=== PATIENT | male | born 1980 | race Two or more races ===

== ENCOUNTER 2019-09-12 14:50 | Emergency (ER) | payer SELFPAY ==
[2019-09-12 15:09] VITALS: BP 124/82; PULSE 91
--- NOTE | 2019-09-12 15:43 | EDM.PDOC ---
<Josie Henry - Last Filed: 09/12/19 15:34> ED HPI GENERAL MEDICAL PROBLEM - General Chief Complaint: Diabetic Complaint Stated Complaint: HIGH BLOOD SUGAR Time Seen by Provider: 09/12/19 15:08 Source of Information: Reports: Patient History Limitations: Reports: No Limitations - History of Present Illness INITIAL COMMENTS - FREE TEXT/NARRATIVE: 38 year old male with complaints of high blood sugars. Pt was diagnosed with type 2 diabetes 4 years ago and recently started on insulin in March. He reports that his blood sugars have been well controlled until about the beginning of August when his blood sugars have been high. He has been working with the nursing educator at [facility] regarding this. He states that 3 weeks ago, his insulin dose was increased and he was started on a sliding scale with Humalog. Last night his blood sugar was 498 and so they contacted the nursing educator and she told them to give 14 units of sliding scale. With in a couple of hours, his blood sugar had decreased to 160 and the patient stated that he did not feel well. Of note, the patient had ice cream last evening. The patient's fasting blood sugar was 266 this am, so they consulted the nursing educator again and she told them to give 10 units of sliding scale and go to the walk in clinic. Once the patient got to the walk in clinic, they sent him to the ED. Patient and his both report that they initially started on a healthy diet with more vegetables, but that they have let this go by the wayside because the nursing educator told them that the patient could eat whatever he wants and just to cover it with insulin. - Related Data Allergies Allergy/AdvReac Type Severity Reaction Status Date / Time No Known Allergies Allergy Verified 09/12/19 15:09 Home Meds: Home Meds Insulin Glargine,Hum.Rec.Anlog [Michael Naylorostkelly] 30 unit SQ DAILY 09/12/19 [ History] Insulin Lispro [Humalog Kwikpen U-100] 10 unit SQ ASDIRECTED 09/12/19 [History] metFORMIN [Glucophage] 850 mg PO BIDMEALS 09/12/19 [History] Past Medical History HEENT History: Reports: None Cardiovascular History: Reports: None Respiratory History: Reports: None Gastrointestinal History: Reports: None Genitourinary History: Reports: None Musculoskeletal History: Reports: None Neurological History: Reports: None Psychiatric History: Reports: None Endocrine/Metabolic History: Reports: Diabetes, Type I Hematologic History: Reports: None Immunologic History: Reports: None Oncologic (Cancer) History: Reports: None Dermatologic History: Reports: None - Infectious Disease History Infectious Disease History: Reports: None Social & Family History - Tobacco Use Smoking Status *Q: Never Smoker - Caffeine Use Caffeine Use: Reports: Tea - Recreational Drug Use Recreational Drug Use: No ED ROS GENERAL - Review of Systems Review Of Systems: See Below Constitutional: Reports: Fatigue. Denies: Fever, Chills, Night Sweats, Diaphoresis HEENT: Reports: No Symptoms Respiratory: Reports: No Symptoms. Denies: Shortness of Breath Endocrine: Reports: Fatigue, High Glucose. Denies: Low Glucose, Polydypsia, Polyuria GI/Abdominal: Reports: No Symptoms. Denies: Abdominal Pain, Nausea, Vomiting : Reports: No Symptoms. Denies: Dysuria, Frequency, Urgency Musculoskeletal: Reports: Joint Pain (generalized body aches), Muscle Pain Skin: Reports: No Symptoms. Denies: Diaphoresis Neurological: Reports: No Symptoms. Denies: Headache Psychiatric: Reports: No Symptoms Hematologic/Lymphatic: Reports: No Symptoms Immunologic: Reports: No Symptoms ED EXAM GENERAL NO PERIP PULSE - Physical Exam Exam: See Below Exam Limited By: No Limitations General Appearance: Alert, WD/WN, No Apparent Distress Eye Exam: Bilateral Eye: PERRL Ears: Normal External Exam, Hearing Grossly Normal Nose: Normal Inspection Throat/Mouth: Normal Inspection, Normal Lips, Normal Voice, No Airway Compromise Head: Atraumatic, Normocephalic Neck: Normal Inspection, Supple, Non-Tender, Full Range of Motion Respiratory/Chest: No Respiratory Distress, Lungs Clear, Normal Breath Sounds, Chest Non-Tender Cardiovascular: Normal Peripheral Pulses, Regular Rate, Rhythm, No Edema, No Murmur GI/Abdominal: Normal Bowel Sounds, Soft, Non-Tender, No Distention (Male) Exam: Deferred Rectal (Males) Exam: Deferred Back Exam: Normal Inspection, Full Range of Motion Extremities: Normal Inspection, Normal Range of Motion, No Pedal Edema Neurological: Alert, Oriented, Normal Cognition, No Motor/Sensory Deficits Psychiatric: Normal Affect, Normal Mood Skin Exam: Warm, Dry, Intact, Normal Color, No Rash Lymphatic: No Adenopathy Course - Vital Signs Last Recorded V/S: Last Vital Signs Temp 98.2 F 09/12/19 15:05 Pulse 91 09/12/19 15:05 Resp 16 09/12/19 15:05 BP 124/82 09/12/19 15:05 Pulse Ox 97 09/12/19 15:05 - Orders/Labs/Meds Labs: Laboratory Tests 09/12/19 09/12/19 09/12/19 Range/Units 15:23 15:50 15:50 WBC 8.62 (4.23-9.07) K/mm3 RBC 5.06 (4.63-6.08) M/mm3 Hgb 15.4 (13.7-17.5) gm/dl Hct 42.2 (40.1-51.0) % MCV 83.4 (79.0-92.2) fl MCH 30.4 (25.7-32.2) pg MCHC 36.5 H (32.2-35.5) g/dl RDW Std Deviation 37.5 (35.1-43.9) fL Plt Count 252 (163-337) K/mm3 MPV 9.5 (9.4-12.3) fl Neut % (Auto) 62.4 (34.0-67.9) % Lymph % (Auto) 27.7 (21.8-53.1) % Lares % (Auto) 7.3 (5.3-12.2) % Eos % (Auto) 2.4 (0.8-7.0) Baso % (Auto) 0.2 (0.1-1.2) % Neut # (Auto) 5.37 (1.78-5.38) K/mm3 Lymph # (Auto) 2.39 (1.32-3.57) K/mm3 Lares # (Auto) 0.63 (0.30-0.82) K/mm3 Eos # (Auto) 0.21 (0.04-0.54) K/mm3 Baso # (Auto) 0.02 (0.01-0.08) K/mm3 Sodium 135 L (136-145) mEq/L Potassium 4.2 (3.5-5.1) mEq/L Chloride 100 (98-107) mEq/L Carbon Dioxide 25 (21-32) mEq/L Anion Gap 14.2 (5-15) BUN 13 (7-18) mg/dL Creatinine 0.8 (0.7-1.3) mg/dL Est Cr Clr Drug Dosing 102.78 mL/min Estimated GFR (MDRD) > 60 (>60) mL/min BUN/Creatinine Ratio 16.3 (14-18) Glucose 365 H (74-106) mg/dL POC Glucose (70-105) mg/dL Calcium 8.7 (8.5-10.1) mg/dL Total Bilirubin 0.4 (0.2-1.0) mg/dL AST 13 L (15-37) U/L ALT 29 (16-63) U/L Alkaline Phosphatase 76 (46-116) U/L Total Protein 7.0 (6.4-8.2) g/dl Albumin 3.5 (3.4-5.0) g/dl Globulin 3.5 gm/dL Albumin/Globulin Ratio 1.0 (1-2) Urine Ketones Negative (Negative) 09/12/19 09/12/19 Range/Units 15:51 18:15 WBC (4.23-9.07) K/mm3 RBC (4.63-6.08) M/mm3 Hgb (13.7-17.5) gm/dl Hct (40.1-51.0) % MCV (79.0-92.2) fl MCH (25.7-32.2) pg MCHC (32.2-35.5) g/dl RDW Std Deviation (35.1-43.9) fL Plt Count (163-337) K/mm3 MPV (9.4-12.3) fl Neut % (Auto) (34.0-67.9) % Lymph % (Auto) (21.8-53.1) % Lares % (Auto) (5.3-12.2) % Eos % (Auto) (0.8-7.0) Baso % (Auto) (0.1-1.2) % Neut # (Auto) (1.78-5.38) K/mm3 Lymph # (Auto) (1.32-3.57) K/mm3 Lares # (Auto) (0.30-0.82) K/mm3 Eos # (Auto) (0.04-0.54) K/mm3 Baso # (Auto) (0.01-0.08) K/mm3 Sodium (136-145) mEq/L Potassium (3.5-5.1) mEq/L Chloride (98-107) mEq/L Carbon Dioxide (21-32) mEq/L Anion Gap (5-15) BUN (7-18) mg/dL Creatinine (0.7-1.3) mg/dL Est Cr Clr Drug Dosing mL/min Estimated GFR (MDRD) (>60) mL/min BUN/Creatinine Ratio (14-18) Glucose (74-106) mg/dL POC Glucose 328 H 268 H (70-105) mg/dL Calcium (8.5-10.1) mg/dL Total Bilirubin (0.2-1.0) mg/dL AST (15-37) U/L ALT (16-63) U/L Alkaline Phosphatase (46-116) U/L Total Protein (6.4-8.2) g/dl Albumin (3.4-5.0) g/dl Globulin gm/dL Albumin/Globulin Ratio (1-2) Urine Ketones (Negative) Meds: Medications Discontinued Medications Generic Name Dose Route Start Last Admin Trade Name Freq PRN Reason Stop Dose Admin Insulin Human Regular 10 unit 09/12/19 16:48 09/12/19 17:17 Humulin R SUBCUT 09/12/19 16:49 10 unit ONETIME ONE Administration Departure - Departure Disposition: Home, Self-Care 01 Clinical Impression: Hyperglycemia, Diabetes mellitus - Discharge Information Instructions: Hyperglycemia, [id number] Referrals: Jasper Hdz Jr, MD [Primary Care Provider] - Forms: ED Department Discharge Additional Instructions: Continue to check your sugars 3 or 4 times daily, before all meals and also at bedtime. 10 you to use sliding scale insulin in addition to your regular dose each as previously directed. Try be very careful to restrict your carbohydrate intake as that is going to push your blood sugars higher. Try stick to a high- protein diets and also eat plenty of fruits and vegetables. You need to avoid flour and sugar type foods. See Magdalena Campos tomorrow. Return to ED as needed. <Rajiv Richard - Last Filed: 09/15/19 13:56> Course - Re-Assessments/Exams Free Text/Narrative Re-Assessment/Exam: 09/12/19 17:55 Initial hx and exam was done by FRANCOISE Navas student. I agree with her history and exam as documented. I also have examined and interviewed patient. Fingerstick glucose here in the ED was 325, Lab glucose 368. We did give patient 10 units regular Humalog insulin subcutaneous just over an hour ago. Check a fingerstick glucose now. He will need to follow-up with Magdalena Campos, diabetic coordinator for [facility] tomorrow to go over his recent readings, current regimen and to make adjustments as needed. Chemistries today are otherwise normal. They should print out on his discharge instructions to go home with patient. Departure - Departure Time of Disposition: 18:20 Condition: Fair
[2019-09-12] MEDS ORDERED: Insulin Regular, Human 100 Units/ML 3 ML Vial SUBCUT ONE (16:48)
== END 2019-09-12 18:58 | disposition home or self-care (01) ==
LOC: JD.ED 14:50
DX: E13.65 Other specified diabetes mellitus with hyperglycemia (principal)
CPT/HCPCS: 36415; 80053; 81003; 82962; 85025; 96372; 99284; J1815; 99283

== ENCOUNTER 2023-03-05 14:56 | Emergency (ER) | payer SELFPAY ==
[2023-03-05 15:24] VITALS: BP 123/77; PULSE 83
[2023-03-05] MEDS ORDERED: Orphenadrine 100 MG Tab.ER PO ONE (15:38)
[2023-03-05] MEDS ORDERED: Naproxen 500 MG Tab PO ONE (15:38)
[2023-03-05] MEDS ORDERED: Benzocaine 20% Dental Gel 30 GM Jar MUCMEM ONE (15:57)
== END 2023-03-05 17:13 | disposition home or self-care (01) ==
LOC: JD.ED 14:56
DX: R07.82 Intercostal pain (principal); E10.9 Type 1 diabetes mellitus without complications
CPT/HCPCS: 71045; 99283; A9270